=== PATIENT | male | born 1955 | race Caucasian/White ===

== ENCOUNTER 2022-09-21 13:22 | Outpatient (CLI) | payer MEDICARE, SELFPAY ==
[2022-09-21 14:39] LABS: Chloride* 110 mmol/L (96-114); Sodium* 142 mmol/L (135-149)
[2022-09-21 14:42] LABS: Blood Urea Nitrogen* 19 mg/dL (7-30); Carbon Dioxide* 27 mmol/L (20-32); Cholesterol* 170 mg/dL (90-199); Creatinine* 1.2 mg/dL (0.5-1.5); Estimated Glomerular Filt Rate 66 ml/min; Glucose* 92 mg/dL (60-115)
[2022-09-21 14:43] LABS: HDL Cholesterol* 55 mg/dL (>=40); LDL Cholesterol Calculated 85 mg/dL (<100); Triglycerides* 148 mg/dL (40-149)
[2022-09-21 14:51] LABS: Potassium* 4.3 mmol/L (3.6-5.1)
== END 2022-09-21 13:23 | disposition home or self-care (01) ==
PROVIDERS: PCP Family Medicine; Visit Provider Family Medicine
DX: E78.5 Hyperlipidemia, unspecified (principal); I10 Essential (primary) hypertension
CPT/HCPCS: 80048; 80061

== ENCOUNTER 2023-10-09 08:44 | Outpatient (CLI) | payer MEDICARE, SELFPAY | END 2023-10-09 08:45 | disposition home or self-care (01) | PROVIDERS: PCP Family Medicine; Visit Provider Family Medicine | DX: Z12.5 Encounter for screening for malignant neoplasm of prostate (principal); E78.2 Mixed hyperlipidemia | CPT/HCPCS: 80061; G0103 ==

== ENCOUNTER 2023-10-27 11:27 | Emergency (ER) | payer MEDICARE, SELFPAY ==
[2023-10-27 11:31] VITALS: BP 131/77; PULSE 73; RESP 18; TEMP 37.7; O2SAT 97; BMI 28.5
--- NOTE | 2023-10-27 11:55 | ED_ITS ---
HPI - General Adult General Chief complaint: Fever Stated complaint: Fever, lower back/leg pain Time Seen by Provider: 10/27/23 11:45 History of Present Illness HPI narrative: This 68-year-old male comes in reporting some generalized malaise that began yesterday. He measured a fever this morning at 101.2? F. Upon arrival here his temperature is 100? F. he did take some Aleve yesterday because he was also experiencing some low back pain that began to radiate down both of his legs po steriorly to his knees. He has not taken any such medicine today. He states that he has a history of lumbar radiculopathy and has had a steroid injection in the past. 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 He denies having any cough or shortness of breath. He does not report any abdominal pain or chest pain. He arrives here with normal vital signs. Related Data Home Medications Medication Instructions Recorded Confirmed latanoprost (PF) 0.005 % eye drops 1 drp ophthalmic (eye) QDAY 01/23/23 10/09/23 multivitamin 1 tab PO QDAY 01/23/23 10/09/23 Previous Rx's Medication Instructions Recorded triamcinolone acetonide 0.1 % 1 applic topical BID #15 grams 09/20/22 topical cream lisinopril 20 mg tablet 20 mg PO QDAY #90 tabs 10/09/23 simvastatin 40 mg tablet 40 mg PO QHS #90 tabs 10/09/23 cyclobenzaprine 10 mg tablet 10 mg PO TID #15 tabs 10/27/23 ketorolac 10 mg tablet 10 mg PO Q8H 5 days #15 tabs 10/27/23 methylprednisolone 4 mg tablets in See Rx Instructions PO .COMPLEX 10/27/23 a dose pack (Medrol (Beck)) #21 ea Allergies Allergy/AdvReac Type Severity Reaction Status Date / Time No Known Allergies Allergy Unknown Unverified 10/09/23 08:07 Review of Systems Status of ROS: Reports: 10 or more systems reviewed and unremarkable except as noted in History and below Narrative: Constitutional: No weight gain or loss. Fever as reported above. Eyes: No discharge. No vision changes. HENT: No congestion, no sore throat, no ear pain. Cardiovascular: No chest pain, no palpitations. Respiratory: No shortness of breath, no wheezes, no cough. Gastrointestinal: No abdominal pain, no vomiting, no diarrhea. Genitourinary: No dysuria, no hematuria. Musculoskeletal: Normal range of motion. Low back pain radiating down both legs posteriorly to his knees. Skin: No rashes, no pruritis. Neurological: No dizziness, weakness, sensory change, speech change. Endo/Heme/Allergies: No bruising or bleeding. No polydipsia. Pysch: no suicidality, no anxiety, no insomnia. All other systems reviewed and are negative. [facility] Medical History History of complex partial epilepsy ?Z86.69 - Personal history of other diseases of the nervous system and sense organs (ICD-10) Surgical History Status post Mohs surgery for basal cell carcinoma ?Z98.890 - Other specified postprocedural states (ICD-10) ?Z85.828 - Personal history of other malignant neoplasm of skin (ICD-10) Family History Other Leukemia Melanoma Social History Smoking Status: Former smoker Little interest or pleasure in doing things: not at all Feeling down, depressed, or hopeless: not at all Exam Narrative: Exam Narrative: Constitutional: Well-developed, well-nourished, no acute distress. HEENT: Normocephalic, atraumatic. Neck: Normal range of motion. Nontender. Supple. Heart: Regular. No murmurs. Normal rate. Intact distal pulses. Lungs: Clear to auscultation. No chest discomfort. No wheezes, rhonchi, or rales. Abdomen: Normal bowel sounds. Nontender. No rebound tenderness. Genitalia: Deferred. Back: No midline tenderness. Diffuse pain across the low back which she reports radiates into both legs as described above. Normal range of motion. Extremities: Normal range of motion. No injury. Skin: Intact. No rash. Warm. No erythema or pallor. Neurologic: No altered sensation. No weakness. Alert and oriented. Psychiatric: No suicidality. No anxiety or depression. No insomnia. Nursing notes and vitals signs are reviewed. Const: Vital Signs, click to edit/add: Vital Signs - 24 hr 10/27/23 11:31 Temperature 100 F H Pulse Rate [Pulse Oximeter] 73 Respiratory Rate 18 Blood Pressure [Ri ght Upper Arm] 131/77 Pulse Oximetry 97 Oxygen Delivery Me thod Room Air Course Vital Signs Vital signs: Initial Vital Signs Temperature 100 F H 10/27/23 11:31 Temperature Source Temporal Artery Scan 10/27/23 11:31 Pulse Rate 73 10/27/23 11:31 Respiratory Rate 18 10/27/23 11:31 Blood Pressure 131/77 10/27/23 11:31 Blood Pressure Mean 95 10/27/23 11:31 Blood Pressure Position Supine 10/27/23 11:31 Pulse Oximetry 97 10/27/23 11:31 Oxygen Delivery Method Room Air 10/27/23 11:31 Vital Signs Temperature 100 F H 10/27/23 11:31 Pulse Rate 73 10/27/23 11:31 Respiratory Rate 18 10/27/23 11:31 Blood Pressure 131/77 10/27/23 11:31 Pulse Oximetry 97 10/27/23 11:31 Oxygen Delivery Method Room Air 10/27/23 11:31 Temperature 100 F H 10/27/23 11:31 Pulse Rate 73 10/27/23 11:31 Respiratory Rate 18 10/27/23 11:31 Blood Pressure 131/77 10/27/23 11:31 Pulse Oximetry 97 10/27/23 11:31 Oxygen Delivery Method Room Air 10/27/23 11:31 Medical Decision Making [facility] Narrative Medical decision making narrative: This patient comes in reporting low back pain radiating into his legs. He also has had some generalized malaise and states that he measured a fever this morning at 100.2? F. Upon arrival here his temperature is 100? F. He has not taken any Tylenol or ibuprofen today. He denies having any symptoms of infection otherwise. Nasal pharyngeal swab returns negative for COVID, influenza, and RSV. I did discuss other lab and imaging options with the patient and these were declined in a process of shared decision making. His back pain radiating into his legs is more suspicious of a lumbar radiculopathy as he has had this in the past. This patient is okay to be discharged home and received prescriptions for Toradol, Flexeril, and Medrol Dosepak. I advised him regarding signs and symptoms that would indicate a need for return and re- evaluation. Lab Data Labs: Lab Results 10/27/23 Range/Units 11:41 SARS-CoV-2 (PCR) Negative SARS-CoV-2 (Negative) Influenza Type A (PCR) Negative PCR FLU A (Negative) Influenza Type B (PCR) Negative PCR FLU B (Negative) RSV (PCR) Negative PCR RSV (Negative) Discharge Plan Discharge Clinical Impression: Acute lumbar radiculopathy Patient Disposition: Home, Self-Care Condition: Stable Additional Instructions: Take medication as prescribed. Follow up with MD return if worsening. Prescriptions: New cyclobenzaprine 10 mg tablet 10 mg PO TID Qty: 15 0RF ketorolac 10 mg tablet 10 mg PO Q8H 5 Days Qty: 15 0RF methylprednisolone [Medrol (Beck)] 4 mg tablets,dose pack See Rx Instructions .ROUTE .COMPLEX Qty: 21 0RF Rx Instructions: orally per package directions No Action triamcinolone acetonide 0.1 % cream 1 applic topical BID Qty: 15 3RF simvastatin 40 mg tablet 40 mg PO QHS Qty: 90 3RF lisinopril 20 mg tablet 20 mg PO QDAY Qty: 90 3RF multivitamin Tablet 1 tab PO QDAY latanoprost (PF) 0.005 % drops 1 drp ophthalmic (eye) QDAY Follow Up/Referrals: Sharif Hunter MD [Primary Care Provider] - Stand Alone Forms: [employer] Info Instructions
[2023-10-27 12:23] LABS: PCR FLU A Negative PCR FLU A (Negative); PCR FLU B Negative PCR FLU B (Negative); PCR RSV Negative PCR RSV (Negative); SARS PCR* Negative SARS-CoV-2 (Negative)
== END 2023-10-27 12:54 | disposition home or self-care (01) ==
PROVIDERS: Emergency Provider Emergency Medicine Emergency Medical Services; PCP Family Medicine
DX: M54.16 Radiculopathy, lumbar region (principal); R50.9 Fever, unspecified
CPT/HCPCS: 87631; 99283; 99284

== ENCOUNTER 2024-08-16 13:21 | Outpatient (CLI) | payer MEDICARE, SELFPAY ==
--- NOTE | 2024-08-16 13:45 | CRLHL7_ITS ---
For Patients: As a result of the Cures Act, medical imaging exams and procedure reports are released immediately into your electronic medical record. You may view this report before your referring provider. If you have questions, please contact your health care provider. BILATERAL CAROTID ULTRASOUND CLINICAL HISTORY: Unspecified visual disturbance. TECHNIQUE: The carotid circulations and the vertebral arteries in the neck were examined with iqbal-scale ultrasound, color-flow and Doppler spectral analysis. Degrees of stenosis were determined using SRU 2002 Consensus Panel Criteria. FINDINGS: No significant atherosclerotic plaque seen. There was antegrade blood flow demonstrated within the vertebral arteries and the subclavian arteries demonstrated a normal triphasic waveform. The spectral Doppler tracings of the common carotid, internal and external carotid arteries demonstrate no abnormal turbulence or spectral broadening. There was no significant elevation of peak systolic blood flow which would indicate a hemodynamically-significant stenosis by SRU criteria. The ICA/CCA peak systolic velocity ratio measures 1.1 on the right and 0.7 on the left. PEAK SYSTOLIC VELOCITY RIGHT: Subclavian A: 103.8 Distal CCA: 84.1. Mid CCA: 90.6. Proximal ICA: 61.4. Mid ICA: 71.3 Distal ICA: 94.2. ICA/CCA Ratio: 1.1. Vertebral artery: Antegrade. LEFT: Subclavian A: 141.3 Distal CCA: 100.8. Mid CCA: 102.6. Proximal ICA: 70.9. Mid ICA: 57.1 Distal ICA: 70.1. ICA/CCA Ratio: 0.7. Vertebral artery: Antegrade. IMPRESSION: No hemodynamically significant stenosis in the internal carotid arteries bilaterally. Smiley Hayes M.D. Diagnostic/Breast Radiologist [email or web address] Transcribed: 8:25 a.m. JR/Dictated by: Smiley Hayes MD @ 08/19/2024 4:25:00 AM (Electronically Signed)
== END 2024-08-16 13:22 | disposition home or self-care (01) ==
LOC: US 13:23
PROVIDERS: PCP Family Medicine; Visit Provider Family Medicine
DX: H53.9 Unspecified visual disturbance (principal)
CPT/HCPCS: 93880

== ENCOUNTER 2024-11-08 14:27 | Outpatient (CLI) | payer MEDICARE, SELFPAY | END 2024-11-08 14:28 | disposition home or self-care (01) | PROVIDERS: PCP Family Medicine; Visit Provider Family Medicine | DX: I10 Essential (primary) hypertension (principal); E78.5 Hyperlipidemia, unspecified | CPT/HCPCS: 80048; 80061 ==